=== PATIENT | male | born 1965 | race Two or more races ===

== ENCOUNTER 2023-01-07 19:36 | Emergency (ER) | payer OTHER ==
[~2023-01-07] VITALS: Ht 177.8 cm; Wt 79.4 kg
[2023-01-07] MEDS ORDERED: VANCOMYCIN IV 1,500 MG in IV DEXTROSE 5% 250 ML IV ONE (22:45)
[2023-01-07] MEDS ORDERED: VANCOMYCIN HCL 500 MG VIAL ONE (22:58)
[2023-01-07] MEDS ORDERED: VANCOMYCIN 1000 MG VIAL ONE (22:58)
[2023-01-07 23:01] LABS: BASOPHILS % (AUTO) 0.5 % (0.0-2.0); EOSINOPHILS # (AUTO) 0.2 K/uL (0.0-0.7); HEMATOCRIT 39.4 % (36.7-47.1); HEMOGLOBIN 13.3 g/dL (12.5-16.3); LYMPHOCYTES # (AUTO) 1.9 K/uL (0.8-4.8); LYMPHOCYTES % (AUTO) 21.3 % (20.5-51.5); MEAN CORPUSCULAR HEMOGLOBIN 30.4 uug (23.8-33.4); MEAN CORPUSCULAR HGB CONC 34 g/dL (32.5-36.3); MEAN CORPUSCULAR VOLUME 90.3 fL (73.0-96.2); MONOCYTES # (AUTO) 0.6 K/uL (0.1-1.30); NEUTROPHILS # (AUTO) 6.1 K/uL (1.8-8.9); NEUTROPHILS % (AUTO) 69.2 % (38.5-71.5); PLATELET COUNT (AUTO) 261 K/uL (152-348); RED BLOOD CELL COUNT(AUTO) 4.36 MIL/uL (4.06-5.63); RED CELL DISTRIBUTION WIDTH 13.2 % (12.1-16.2); WHITE BLOOD COUNT (AUTO) 8.7 K/uL (3.6-10.2)
[2023-01-07 23:02] LABS: DIFFERENTIAL COMMENT 1
[2023-01-07 23:15] LABS: ALBUMIN 3.2 g/dL (3.4-5.0); BILIRUBIN,TOTAL 0.2 mg/dL (0.2-1.0); CALCIUM 8.7 mg/dL (8.5-10.1); CREATININE 1.2 mg/dL (0.6-1.3); TOTAL PROTEIN, SERUM 7.2 g/dL (6.4-8.2)
[2023-01-07 23:30] LABS: C-REACTIVE PROTEIN 14.2 mg/dL (0.0-0.9)
[2023-01-07] MEDS ORDERED: KETOROLAC TROMETHAMINE 30 MG INJ IVP ONE (23:30)
[2023-01-08] MEDS ORDERED: CEPH500T PO (01:31)
[2023-01-08] MEDS ORDERED: SULF1TAB48 PO (01:31)
[2023-01-08 01:44] VITALS: BP 153/89; O2SAT 98
== END 2023-01-08 01:44 | disposition left against medical advice (07) ==
LOC: ER 19:36
DX: L02.512 Cutaneous abscess of left hand (principal); L03.113 Cellulitis of right upper limb; M10.9 Gout, unspecified; F17.210 Nicotine dependence, cigarettes, uncomplicated; Z79.899 Other long term (current) drug therapy
CPT/HCPCS: 36415; 73100; 85025; 86140; 87040; A4663; J3370

== ENCOUNTER 2023-11-17 16:33 | Emergency (ER) | payer SELFPAY ==
[~2023-11-17] VITALS: Ht 170.2 cm; Wt 90.7 kg
[~2023-11-17 16:33] MED LIST: CEPH500T PO; SULF1TAB48 PO
[2023-11-17 17:02] VITALS: O2SAT 100
[2023-11-17 17:50] LABS: BASOPHILS % (AUTO) 0.3 % (0.0-2.0); EOSINOPHILS # (AUTO) 0.1 K/uL (0.0-0.7); EOSINOPHILS % (AUTO) 1.1 % (0.0-7.0); HEMATOCRIT 44.6 % (36.7-47.1); HEMOGLOBIN 14.9 g/dL (12.5-16.3); LYMPHOCYTES # (AUTO) 1.7 K/uL (0.8-4.8); LYMPHOCYTES % (AUTO) 18.3 % (20.5-51.5); MEAN CORPUSCULAR HEMOGLOBIN 29.5 uug (23.8-33.4); MEAN CORPUSCULAR HGB CONC 33 g/dL (32.5-36.3); MEAN CORPUSCULAR VOLUME 88.6 fL (73.0-96.2); MONOCYTES # (AUTO) 0.5 K/uL (0.1-1.30); MONOCYTES % (AUTO) 5.2 % (0.0-11.0); NEUTROPHILS # (AUTO) 6.9 K/uL (1.8-8.9); NEUTROPHILS % (AUTO) 75.1 % (38.5-71.5); PLATELET COUNT (AUTO) 280 K/uL (152-348); RED BLOOD CELL COUNT(AUTO) 5.04 MIL/uL (4.06-5.63); RED CELL DISTRIBUTION WIDTH 13.1 % (12.1-16.2); WHITE BLOOD COUNT (AUTO) 9.2 K/uL (3.6-10.2)
[2023-11-17 17:59] LABS: DIFFERENTIAL COMMENT 1
[2023-11-17 18:05] LABS: AMMONIA 40 umol/L (11-32)
[2023-11-17 18:06] LABS: ETHANOL < 3 MG/DL (0-10)
[2023-11-17 18:37] LABS: CALCIUM 9.2 mg/dL (8.5-10.1); CARBON DIOXIDE 23 mmol/L (21-32); CHLORIDE 107 mmol/L (98-107); GLUCOSE 101 mg/dL (74-106); POTASSIUM 3.8 mmol/L (3.5-5.1); SODIUM SERUM 142 mmol/L (136-145); UREA NITROGEN, BLOOD 27 mg/dL (7-18)
[2023-11-17 18:46] LABS: ALANINE AMINOTRANSFERASE 17 U/L (16-63); ALBUMIN 3.5 g/dL (3.4-5.0); ALKALINE PHOSPHATASE 80 U/L (50-136); ASPARTATE AMINOTRANSFERASE 5 U/L (15-37); BILIRUBIN,DIRECT 0.2 mg/dL (0.0-0.2); BILIRUBIN,TOTAL 0.4 mg/dL (0.2-1.0); TOTAL PROTEIN, SERUM 7.3 g/dL (6.4-8.2)
[2023-11-17 18:50] LABS: ACETAMINOPHEN < 2.0 ug/mL (10-30)
== END 2023-11-17 17:44 | disposition left against medical advice (07) ==
LOC: ER 16:34
DX: R53.1 Weakness (principal); F17.200 Nicotine dependence, unspecified, uncomplicated; Z79.899 Other long term (current) drug therapy
CPT/HCPCS: 36415; 70450; 71045; 72125; 84484; 85025; 85730; 93005; A4606; A4663; G0480